=== PATIENT | female | born 1975 | race Caucasian/White ===

== ENCOUNTER 2016-12-07 14:14 | Emergency (ER) | payer BC, MEDICAID ==
[~2016-12-07] VITALS: Ht 160 cm; Wt 100.0 kg
[~2016-12-07 14:14] MED LIST: AMOXICILLIN; TYLENOL PRN
[2016-12-07] MEDS ORDERED: SOD CHLORIDE 0.9% 500 ML IV STA (14:20)
[2016-12-07 14:21] VITALS: Ht 160 cm; Wt 100.0 kg
[2016-12-07] MEDS ORDERED: LORAZEPAM 2 MG INJ IV ONE (14:30)
[2016-12-07 14:57] LABS: CALCIUM 7.5 mg/dl (8.4-10.2); CREATININE 0.57 mg/dl (0.44-1.00); MAGNESIUM 1.5 mg/dl (1.7-2.5); PHOSPHORUS 4.2 mg/dl (2.5-4.9); POTASSIUM 3.7 mmol/L (3.5-5.1)
[2016-12-07] MEDS ORDERED: LIOT50TA2 PO (15:07)
[2016-12-07] MEDS ORDERED: ERGO500037 PO (15:08)
[2016-12-07] MEDS ORDERED: AMLO5TAB4 PO (15:10)
[2016-12-07] MEDS ORDERED: OXYC-279 PO (15:10)
[2016-12-07 15:11] LABS: T3 UPTAKE 41.5 % (23.5-40.5)
[2016-12-07] MEDS ORDERED: METO25TA4 PO (15:11)
[2016-12-07] MEDS ORDERED: LEVO125T75 PO (15:11)
[2016-12-07] MEDS ORDERED: FER325 PO (15:12)
[2016-12-07] MEDS ORDERED: CEPH500C PO (15:12)
[2016-12-07] MEDS ORDERED: CALCIUM GLUCONATE 10% 1 GM in SOD CHLORIDE 0.9% 100 ML IVPB ONE (15:30)
[2016-12-07] MEDS ORDERED: MAGNESIUM SULFATE 1 GM/D5W 100 ML IVPB ONE (15:30)
--- NOTE | 2016-12-07 15:53 | ERD ---
ER Documentation Chief Complaint Date/Time DATE: 12/07/16 TIME: 15:48 Chief Complaint anxiety related to thyroid removal yesterday HPI 41-year-old female had thyroidectomy yesterday who presents to the emergency room with spasms of bilateral hands. She states that she was asymptomatic and sitting at rest when she had sudden spasms of bilateral hand. Patient now describes some anxiety. She denies any significant hyperventilation. No chest pain or shortness of breath, no pleuritic pain. No fever. The patient states that she did not take her calcium until just prior to arrival. ROS All systems reviewed and are negative except as per history of present illness. Medications Home Meds Reported Medications Ferrous Sulfate* (Ferrous Sulfate*) 325 Mg Tabec, 325 MG PO DAILY, TAB 12/07/16 Cephalexin* (Cephalexin*) 500 Mg Capsule, 500 MG PO TID, #21 CAP 12/07/16 Levothyroxine Sodium* (Levothyroxine Sodium*) 125 Mcg Tablet, 125 MCG PO BEFORE BREAKFAST, #30 TAB 12/07/16 Metoprolol Tartrate* (Lopressor*) 25 Mg Tablet, 25 MG PO BID, #60 TAB 12/07/16 Amlodipine Besylate* (Norvasc*) 5 Mg Tablet, 5 MG PO DAILY, TAB 12/07/16 Oxycodone HCl/Acetaminophen (Percocet 5-325 mg Tablet) 1 Each Tablet, 1 EACH PO NEEDED, TAB 12/07/16 Ergocalciferol (Vitamin D2) (VITAMIN D2) 50,000 Unit Capsule, 02150 UNIT PO Q7D , CAP 12/07/16 Liothyronine Sodium* (Cytomel*) 50 Mcg Tablet, 25 MCG PO DAILY, TAB 12/07/16 Discontinued Reported Medications [Amoxicillin] No Conflict Check 10/19/09 [Tylenol Prn] No Conflict Check 10/19/09 Allergies Allergies: Coded Allergies: No Known Allergy (Verified , 12/07/16) PMhx/Soc History of Surgery: Yes (CHOLECYSTECTOMY,HYSTERECTOMY,THYROIDECTOMY) Anesthesia Reaction: No Hx Neurological Disorder: No Hx Respiratory Disorders: No Hx Psychiatric Problems: Yes (ANXIETY) Hx Miscellaneous Medical Probl: Yes Hx Alcohol Use: No Hx Substance Use: No Hx Tobacco Use: No Smoking Status: Never smoker FmHx Family History: No diabetes Physical Exam Vitals Vital Signs Date Time Temp Pulse Resp B/P Pulse Ox O2 Delivery O2 Flow Rate FiO2 12/07/16 14:21 98.4 102 20 169/107 97 Physical Exam General: Anxious, carpal spasms Head: Normocephalic, atraumatic. Eyes: Pupils equally reactive, EOM intact ENT: Moist mucous membranes Neck: Supple, no lymphadenopathy Respiratory: Lungs clear bilaterally, no distress Cardiovascular: RRR, no murmurs, rubs, or gallops Abdominal: Soft, non-tender, non-distended, no peritoneal signs : Deferred MSK: No edema, no unilateral swelling, 5/5 strength Neurologic: Alert and oriented, moving all extremities, normal speech, no focal weakness, no cerebellar signs Skin: No rash Psych: Normal mood Result Diagram: 12/07/16 1427 Results 24 hrs Laboratory Tests Test 12/07/16 14:27 Sodium Level 138mmol/L Potassium Level 3.7mmol/L Chloride Level 101mmol/L Carbon Dioxide Level 25mmol/L Anion Gap 16 Blood Urea Nitrogen 13mg/dl Creatinine 0.57mg/dl Glucose Level 173mg/dl Calcium Level 7.5mg/dl Phosphorus Level 4.2mg/dl Magnesium Level 1.5mg/dl Free Thyroxine Index 6.27ug/ml Thyroxine (T4) 15.1ug/dl Triiodothyronine (T3) Uptake 41.5% Current Medications Medications (Trade) Dose Ordered Sig/Johnson Route PRN Reason Start Time Stop Time Status Last Admin Dose Admin Sodium Chloride (NS) 500 ml @ 500 mls/hr Q1H STAT IV 12/07/16 14:20 12/07/16 15:19 DC 12/07/16 14:31 Lorazepam 1 mg 1 mg ONCE ONCE IV 12/07/16 14:30 12/07/16 14:31 DC 12/07/16 14:31 Magnesium Sulfate/ Dextrose 100 ml @ 100 mls/hr ONCE ONCE IVPB 12/07/16 15:30 12/07/16 16:29 12/07/16 15:35 Calcium Gluconate/ Sodium Chloride (Ca Gluc/NS) 110 ml @ 110 mls/hr ONCE ONCE IVPB 12/07/16 15:30 12/07/16 16:29 Procedures/MDM EKG, MONITORS, & DIAGNOSTIC IMAGING: EKG: I reviewed and interpreted a 12-lead EKG. Rhythm: Normal sinus rhythm Ectopy: None Intervals: Prolonged AL interval ST segments: No elevations or depressions T waves: No contiguous inversions LAB INTERPRETATION: Hypomagnesemia, hypocalcemia, slightly elevated thyroid MEDICAL DECISION MAKING: The patient presents with carpal spasms. The patient's symptoms may be secondary to hypocalcemia versus anxiety reaction and carpal pedal spasms. However she does not describe hyperventilation prior to this episode. The patient has no evidence of thyroid storm, no significant tachycardia or fever agitation. ER COURSE: The patient was given IV fluids, Ativan for anxiolysis. The patient's magnesium and calcium is low. Repletion through IV has been performed. The patient's thyroid is also slightly elevated. I was able speak to Dr. Warren, the patient's ENT surgeon. He states that this is likely secondary to the recent surgery. The patient does not show evidence of thyrotoxicosis. He recommends repletion of electrolytes, the patient should be taking Tums 1000 mg 3 times daily. This has been given to the patient. She states understanding. The patient can be safely followed up in his office as an outpatient. The patient's symptoms have improved with IV fluids, anxiolysis, electrolyte replacement. Patient is safe for discharge. I kept the patient and/or family informed of laboratory and diagnostic imaging results throughout the emergency room course. DISPOSITION PLAN: We discussed follow up with the patient's primary care doctor within 24 to 48 hours as needed. We also discussed return to the emergency room for worsening symptoms or worsening condition. Outpatient referral: Dr. Warren, ENT Departure Diagnosis: Primary Impression: Muscle spasm Additional Impressions: Hypocalcemia Hypomagnesemia Condition: Stable GEETA LAUREN MD Dec 07, 2016 15:53
[2016-12-07 17:55] VITALS: BP 145/95; PULSE 88; RESP 18; TEMP 98.4
== END 2016-12-07 18:21 | disposition home or self-care (01) ==
LOC: E/R 14:14
DX: M62.838 Other muscle spasm (principal); E83.51 Hypocalcemia; E83.42 Hypomagnesemia; I10 Essential (primary) hypertension; R40.2142 Coma scale, eyes open, spontaneous, at arrival to emergency department; R40.2362 Coma scale, best motor response, obeys commands, at arrival to emergency department; R40.2252 Coma scale, best verbal response, oriented, at arrival to emergency department
CPT/HCPCS: 80048; 83735; 84100; 84436; 84479; 93005; J0610; J2060; J3475; J7040; Z7610; 36415; 96374; 96375

== ENCOUNTER 2017-02-11 18:37 | Emergency (ER) | payer BC ==
[~2017-02-11] VITALS: Ht 162.6 cm; Wt 108.0 kg
[~2017-02-11 18:37] MED LIST changes: +AMLO5TAB4 PO; -AMOXICILLIN; +CEPH500C PO; +ERGO500037 PO; +FER325 PO; +LEVO125T75 PO; +LIOT50TA2 PO; +METO25TA4 PO; +OXYC-279 PO; -TYLENOL PRN
[2017-02-11 18:41] VITALS: Ht 162.6 cm; Wt 108.0 kg
[2017-02-11] MEDS ORDERED: morphine 2 MG INJ IV STA (19:09)
[2017-02-11] MEDS ORDERED: ONDANSETRON 4 MG INJ IV STA (19:09)
[2017-02-11] MEDS ORDERED: SOD CHLORIDE 0.9% 1,000 ML IV STA (19:09)
--- NOTE | 2017-02-11 19:22 | ERD ---
ER Documentation Chief Complaint Date/Time DATE: 02/11/17 TIME: 19:20 Chief Complaint abd pain/vomiting/diarrhea after eating sushi yesterday HPI 41-year-old female with history of thyroid disease, comes emergency room with epigastric abdominal pain with vomiting and diarrhea that started at around 2 AM this morning. She describes a sharp, intermittent pain in epigastric region , nonradiating. She has had nonbloody nonbilious emesis and several episodes of loose stools. She states that she ate sushi for dinner last night, other family members that he with her however she states that they are feeling fine today. She started having painful urination that is burning like this afternoon. ROS All systems reviewed and are negative except as per history of present illness. Medications Home Meds Active Scripts Ondansetron (Ondansetron Odt) 4 Mg Tab.rapdis, 4 MG PO Q6H Y for NAUSEA AND/OR VOMITING, #12 TAB Prov:TIKI PIRES PA-C 02/11/17 Dicyclomine Hcl* (Bentyl*) 10 Mg Capsule, 10 MG PO QID, #12 CAP Prov:TIKI PIRES PA-C 02/11/17 Azithromycin* (Zithromax*) 500 Mg Tablet, 500 MG PO DAILY for 3 Days, TAB Prov:TIKI PIRES PA-C 02/11/17 Reported Medications Ferrous Sulfate* (Ferrous Sulfate*) 325 Mg Tabec, 325 MG PO DAILY, TAB 12/07/16 Cephalexin* (Cephalexin*) 500 Mg Capsule, 500 MG PO TID, #21 CAP 12/07/16 Levothyroxine Sodium* (Levothyroxine Sodium*) 125 Mcg Tablet, 125 MCG PO BEFORE BREAKFAST, #30 TAB 12/07/16 Metoprolol Tartrate* (Lopressor*) 25 Mg Tablet, 25 MG PO BID, #60 TAB 12/07/16 Amlodipine Besylate* (Norvasc*) 5 Mg Tablet, 5 MG PO DAILY, TAB 12/07/16 Oxycodone HCl/Acetaminophen (Percocet 5-325 mg Tablet) 1 Each Tablet, 1 EACH PO NEEDED, TAB 12/07/16 Ergocalciferol (Vitamin D2) (VITAMIN D2) 50,000 Unit Capsule, 27174 UNIT PO Q7D , CAP 12/07/16 Liothyronine Sodium* (Cytomel*) 50 Mcg Tablet, 25 MCG PO DAILY, TAB 12/07/16 Allergies Allergies: Coded Allergies: No Known Allergy (Verified , 02/11/17) PMhx/Soc History of Surgery: Yes (CHOLECYSTECTOMY,HYSTERECTOMY,THYROIDECTOMY) Anesthesia Reaction: No Hx Neurological Disorder: No Hx Respiratory Disorders: No Hx Psychiatric Problems: Yes (ANXIETY) Hx Miscellaneous Medical Probl: Yes Hx Alcohol Use: No Hx Substance Use: No Hx Tobacco Use: No Smoking Status: Never smoker Physical Exam Vitals Vital Signs Date Time Temp Pulse Resp B/P Pulse Ox O2 Delivery O2 Flow Rate FiO2 02/11/17 18:41 98.2 101 20 152/86 97 Physical Exam General: Well-developed, well-nourished. The patient appears in no acute distress. HEENT: Head is normocephalic, atraumatic. No scleral icterus. Neck: Supple. Nontender. Lungs: Clear to auscultation. Normal air movement. Heart: Regular rate and rhythm. S1 and S2 are normal. No murmurs, gallops, or rubs. Abdomen: Soft, epigastric region is tender,, nondistended. Bowel sounds are normoactive. Negative Carrizales sign, no McBurney's tenderness. Extremities: No clubbing or cyanosis. Normal pulses. Moving extremities x 4. No weakness. Neurologic: Alert and oriented 3. No focal deficits. Skin: Normal turgor. No rash or lesions. Result Diagram: 02/11/17191902/11/171919 Results 24 hrs Laboratory Tests Test 02/11/17 19:14 02/11/17 19:20 Urine Color LT. YELLOW Urine Clarity CLEAR Urine pH 6.0 Urine Specific Lenore 1.010 Urine Ketones NEGATIVE Urine Nitrite NEGATIVE Urine Bilirubin NEGATIVE Urine Urobilinogen 0.2 E.U./dL Urine Leukocyte Esterase NEGATIVE Urine Microscopic RBC 0-2/HPF Urine Microscopic WBC NONE SEEN/HPF Urine Epithelial Cells FEW Urine Bacteria RARE Urine Hemoglobin 1+ Urine Glucose NEGATIVE% Urine Total Protein NEGATIVE White Blood Count 13.710^3/ul Red Blood Count 5.0010^6/ul Hemoglobin 15.5g/dl Hematocrit 45.0% Mean Corpuscular Volume 90.0fl Mean Corpuscular Hemoglobin 31.0pg Mean Corpuscular Hemoglobin Concent 34.4g/dl Red Cell Distribution Width 13.4% Platelet Count 89903^3/UL Mean Platelet Volume 10.2fl Neutrophils % 84.1% Lymphocytes % 9.8% Monocytes % 4.7% Eosinophils % 0.7% Basophils % 0.3% Nucleated Red Blood Cells % 0.0/100WBC Neutrophils # 11.510^3/ul Lymphocytes # 1.310^3/ul Monocytes # 0.610^3/ul Eosinophils # 0.110^3/ul Basophils # 0.010^3/ul Nucleated Red Blood Cells # 0.010^3/ul Sodium Level 138mmol/L Potassium Level 3.6mmol/L Chloride Level 100mmol/L Carbon Dioxide Level 24mmol/L Anion Gap 18 Blood Urea Nitrogen 12mg/dl Creatinine 0.72mg/dl Glucose Level 132mg/dl Calcium Level 9.1mg/dl Total Bilirubin 1.7mg/dl Direct Bilirubin 0.00mg/dl Indirect Bilirubin 1.7mg/dl Aspartate Amino Transf (AST/SGOT) 38IU/L Alanine Aminotransferase (ALT/SGPT) 74IU/L Alkaline Phosphatase 72IU/L Total Protein 7.6g/dl Albumin 5.1g/dl Globulin 2.50g/dl Albumin/Globulin Ratio 2.04 Lipase 34U/L Current Medications Medications (Trade) Dose Ordered Sig/Johnson Route PRN Reason Start Time Stop Time Status Last Admin Dose Admin Sodium Chloride (NS) 1,000 ml @ 1,000 mls/hr Q1H STAT IV 02/11/17 19:09 02/11/17 20:08 DC 02/11/17 19:27 Morphine Sulfate (morphine) 2 mg ONCE STAT IV 02/11/17 19:09 02/11/17 19:12 DC Ondansetron HCl (Zofran Inj) 4 mg ONCE STAT IV 02/11/17 19:09 02/11/17 19:12 DC 02/11/17 19:27 Patient: MARITA FARRIS : 1975 Age: 41 Sex: F MR #: [id number] DOS: 02/11/172022 Ordering MD: TIKI PIRES PA-C Location: [facility] Room/Bed: PROCEDURE: US Abdomen (right upper quadrant). CLINICAL INDICATION: Right upper quadrant abdomen pain. TECHNIQUE: Multiple real-time longitudinal and transverse images of the right upper quadrant of the abdomen were acquired utilizing a curved array transducer. Images were reviewed on a high-resolution PACS workstation. COMPARISON: None FINDINGS: Images are suboptimal due to patient body habitus. The liver is enlarged and diffusely increased in echogenicity. There is no focal hepatic lesion. The gallbladder is surgically absent. The bile ducts are normal with the common bile duct measuring 6.4 mm in diameter. The visualized portions of the pancreas are unremarkable with obscuration of the tail of the pancreas. No free fluid is present. The right kidney measures 11.1 cm. There is normal echogenicity of the right kidney. There is no perinephric fluid collection. No hydronephrosis, mass, or calculus is seen. IMPRESSION: 1. Suboptimal study due to patient body habitus. 2. Hepatomegaly. 3. Fatty metamorphosis of the liver. 4. Status post cholecystectomy. 5. Otherwise unremarkable study. RPTAT: QQ .David Rangel MD, MD Date Time Electronically viewed and signed by .David Rangel MD, MD on 02/11/2017 20:43 .R/ CC: TIKI PIRES PA-C Procedures/[facility] ED course: Patient had an IV line established, blood and urine were obtained. She was given morphine 4 mg, Zofran 4 mg IV and a fluid bolus of normal saline. The patient's abdominal pain was reexamined. Patient was sitting comfortably with improved pain. Patient was not in any distress. Medical decision makin-year-old female comes in vomiting and diarrhea for the past day, possibly from early viral syndrome versus food poisoning. Patient states that her symptoms began after eating sushi yesterday. She had a workup done here, given that she had abdominal pain. Like leukocytosis noted, mild at 13.7 likely from vomiting. She does have elevated bilirubin however this is likely because she is status post cholecystectomy, and abdominal ultrasound was done without any signs of obstruction. I doubt choledocholithiasis or acute cholangitis. Urine was also reviewed and negative for infection. She was given fluids as well as morphine and Zofran at this time she states she is feeling much better, does not have any urge to vomit. She will be advised to do slow advance to regular diet, clear liquids over the next 24 hours. Patient will be treated for possible food poisoning given her history of eating at a restaurant in subsequently developing vomiting and diarrhea. No signs of pancreatitis, appendicitis, bowel obstruction, acute hepatobiliary process. Departure Diagnosis: Primary Impression: Nausea vomiting and diarrhea Condition: Good TIKI PIRES PA-C Feb 11, 2017 19:22
[2017-02-11 19:47] LABS: ADD SCAN DIFF NO
[2017-02-11 19:49] LABS: BASOPHILS % 0.3 % (0.0-2.0); EOSINOPHILS # 0.1 10^3/ul (0.0-0.5); EOSINOPHILS % 0.7 % (0.0-7.0); HEMOGLOBIN 15.5 g/dl (12.0-16.0); LYMPHOCYTES # 1.3 10^3/ul (0.8-2.9); LYMPHOCYTES % 9.8 % (15.0-51.0); MEAN CORPUSCULAR HGB CONC 34.4 g/dl (32.0-37.0); MEAN PLATELET VOLUME 10.2 fl (7.4-10.4); MONOCYTE # 0.6 10^3/ul (0.3-0.9); MONOCYTES % 4.7 % (0.0-11.0); NEUTROPHIL # 11.5 10^3/ul (1.6-7.5); NEUTROPHILS % 84.1 % (39.0-77.0); PLATELET COUNT 281 10^3/UL (140-415); RED CELL DISTRIBUTION WIDTH 13.4 % (11.5-14.5); WHITE BLOOD COUNT 13.7 10^3/ul (4.8-10.8)
[2017-02-11 19:51] LABS: ADD UMIC YES; UR BILIRUBIN (Dip) NEGATIVE (NEGATIVE); UR BLOOD (Dip) 1+ (NEGATIVE); UR CLARITY CLEAR (CLEAR); UR COLOR LT. YELLOW (YELLOW); UR GLUCOSE (Dip) NEGATIVE (NEGATIVE); UR KETONES (Dip) NEGATIVE (NEGATIVE); UR LEUKOCYTE ESTERASE (Dip) NEGATIVE (NEGATIVE); UR NITRITE (Dip) NEGATIVE (NEGATIVE); UR TOTAL PROTEIN (Dip) NEGATIVE (NEGATIVE); UR UROBILINOGEN (Dip) 0.2 E.U./dL (0.1-1.0)
[2017-02-11 19:58] LABS: UR BACTERIA RARE; URINE RBCS 0-2 /HPF (0)
[2017-02-11 20:15] LABS: ALBUMIN 5.1 g/dl (3.3-4.9); ALBUMIN/GLOBULIN RATIO 2.04; BILIRUBIN,INDIRECT 1.7 mg/dl (0-1.1); BILIRUBIN,TOTAL 1.7 mg/dl (0.2-1.3); CALCIUM 9.1 mg/dl (8.4-10.2); CREATININE 0.72 mg/dl (0.44-1.00); POTASSIUM 3.6 mmol/L (3.5-5.1); TOTAL PROTEIN 7.6 g/dl (6.1-8.1)
--- NOTE | 2017-02-11 20:43 | RADRPT ---
PROCEDURE: US Abdomen (right upper quadrant). CLINICAL INDICATION: Right upper quadrant abdomen pain. TECHNIQUE: Multiple real-time longitudinal and transverse images of the right upper quadrant of th e abdomen were acquired utilizing a curved array transducer. Images were reviewed on a high-resoluti on PACS workstation. COMPARISON: None FINDINGS: Images are suboptimal due to patient body habitus. The liver is enlarged and diffusely increased in echogenicity. There is no focal hepatic lesion. The gallbladder is surgically absent. The bile ducts are normal with the common bile duct measuring 6.4 mm in diameter. The visualized portions of the pancreas are unremarkable with obscuration of the tail of the pancrea s. No free fluid is present. The right kidney measures 11.1 cm. There is normal echogenicity of the right kidney. There is no perinephric fluid collection. No hydronephrosis, mass, or calculus is seen. IMPRESSION: 1. Suboptimal study due to patient body habitus. 2. Hepatomegaly. 3. Fatty metamorphosis of the liver. 4. Status post cholecystectomy. 5. Otherwise unremarkable study. RPTAT: QQ .David Rangel MD, Date Time Electronically viewed and signed by .David Rangel MD, on 02/11/2017 20:43 .R/
[2017-02-11] MEDS ORDERED: DICY10CA60 PO (20:50)
[2017-02-11] MEDS ORDERED: ONDA4TAB14 PO (20:50)
[2017-02-11] MEDS ORDERED: AZIT500T3 PO (20:50)
[2017-02-11 20:55] VITALS: BP 134/72; PULSE 72; RESP 18
== END 2017-02-11 20:55 | disposition home or self-care (01) ==
LOC: FTE 18:37
DX: R11.2 Nausea with vomiting, unspecified (principal); R19.7 Diarrhea, unspecified
CPT/HCPCS: 36415; 76705; 80053; 81001; 83690; 85025; 96374; J2405; J7030; Z7502; J2270

== ENCOUNTER 2017-03-05 10:22 | Emergency (ER) | payer BC ==
[~2017-03-05] VITALS: Ht 165.1 cm; Wt 86.0 kg
[~2017-03-05 10:22] MED LIST changes: +AZIT500T3 PO; +DICY10CA60 PO; +ONDA4TAB14 PO
[2017-03-05 10:24] VITALS: Ht 165.1 cm; Wt 86.0 kg
[2017-03-05] MEDS ORDERED: SOD CHLORIDE 0.9% 1,000 ML IV STA (10:42)
[2017-03-05 11:03] LABS: ADD SCAN DIFF NO
--- NOTE | 2017-03-05 11:04 | RADRPT ---
PROCEDURE: XR Chest. CLINICAL INDICATION: chest pain TECHNIQUE: Single frontal view of the chest was obtained COMPARISON: 11/27/2013 FINDINGS: The heart and mediastinum are within normal limits. The lungs are clear. There is no pleural effusion or pneumothorax. RPTAT: AA IMPRESSION: No acute disease. .Sulaiman Franks MD, MD Date Time Electronically viewed and signed by .Sulaiman Franks MD, MD on 03/05/2017 11:03 .S/
[2017-03-05 11:12] LABS: BASOPHIL # 0.1 10^3/ul (0.0-0.1); BASOPHILS % 0.5 % (0.0-2.0); EOSINOPHILS # 0.1 10^3/ul (0.0-0.5); EOSINOPHILS % 0.6 % (0.0-7.0); HEMOGLOBIN 15.2 g/dl (12.0-16.0); LYMPHOCYTES # 2.2 10^3/ul (0.8-2.9); LYMPHOCYTES % 17.3 % (15.0-51.0); MEAN CORPUSCULAR HEMOGLOBIN 31.1 pg (29.0-33.0); MEAN CORPUSCULAR HGB CONC 35.3 g/dl (32.0-37.0); MEAN CORPUSCULAR VOLUME 88.1 fl (82.0-101.0); MEAN PLATELET VOLUME 9.9 fl (7.4-10.4); MONOCYTE # 0.5 10^3/ul (0.3-0.9); MONOCYTES % 4.3 % (0.0-11.0); NEUTROPHIL # 9.6 10^3/ul (1.6-7.5); NEUTROPHILS % 76.9 % (39.0-77.0); PLATELET COUNT 327 10^3/UL (140-415); RED BLOOD COUNT 4.88 10^6/ul (4.20-5.40); RED CELL DISTRIBUTION WIDTH 12.7 % (11.5-14.5); WHITE BLOOD COUNT 12.5 10^3/ul (4.8-10.8)
[2017-03-05] MEDS ORDERED: METOCLOPRAMIDE 10 MG INJ IV ONE (11:30)
[2017-03-05 11:34] LABS: ANION GAP 19 (8-16); BLOOD UREA NITROGEN 13 mg/dl (7-20); CALCIUM 9.6 mg/dl (8.4-10.2); CARBON DIOXIDE 20 mmol/L (21-31); CHLORIDE 101 mmol/L (97-110); GLUCOSE 131 mg/dl (70-220); POTASSIUM 3.4 mmol/L (3.5-5.1); SODIUM 137 mmol/L (135-144)
[2017-03-05 11:49] LABS: TROPONIN-I < 0.012 ng/ml (0.00-0.12)
[2017-03-05] MEDS ORDERED: SOD CHLORIDE 0.9% 1,000 ML IV ONE (13:14)
[2017-03-05] MEDS ORDERED: METO10TA92 PO (13:28)
[2017-03-05] MEDS ORDERED: FAMO-96 PO (13:28)
[2017-03-05] MEDS ORDERED: FAMOTIDINE 20 MG TAB PO ONE (13:30)
--- NOTE | 2017-03-05 14:20 | ERD ---
ER Documentation Chief Complaint Date/Time DATE: 03/05/17 TIME: 14:13 Chief Complaint PT fainted loss consciousness, seen in [place] yesterday for same. HPI 41-year-old female presenting with 4 days of nausea and dizziness. She initially had vomiting and diarrhea which resolved. She denies any associated hematemesis or hematochezia. She was seen at an outside hospital for the same complaints yesterday. She had labs and a CT scan of her abdomen done and there were no acute abnormalities per the patient. She was sent home with a prescription for Zofran. This morning she had a syncopal event while walking to the refrigerator. She felt very dizzy and clammy. She denies any associated chest pain, shortness of breath, fever, chills. She has continued nausea with epigastric discomfort. She spoke with her primary care doctor, Noah Pang, who advised evaluation in the ED ROS All systems reviewed and are negative except as per history of present illness. Medications Home Meds Active Scripts Metoclopramide* (Reglan*) 10 Mg Tablet, 10 MG PO Q6 Y for NAUSEA AND/OR VOMITING , #10 TAB Prov:MONROE ARREDONDO MD 03/05/17 Famotidine* (Pepcid*) 20 Mg Tablet, 20 MG PO BID for 4 Days, TAB Prov:MONROE ARREDONDO MD 03/05/17 Reported Medications Ferrous Sulfate* (Ferrous Sulfate*) 325 Mg Tabec, 325 MG PO DAILY, TAB 12/07/16 Cephalexin* (Cephalexin*) 500 Mg Capsule, 500 MG PO TID, #21 CAP 12/07/16 Levothyroxine Sodium* (Levothyroxine Sodium*) 125 Mcg Tablet, 125 MCG PO BEFORE BREAKFAST, #30 TAB 12/07/16 Metoprolol Tartrate* (Lopressor*) 25 Mg Tablet, 25 MG PO BID, #60 TAB 12/07/16 Amlodipine Besylate* (Norvasc*) 5 Mg Tablet, 5 MG PO DAILY, TAB 12/07/16 Oxycodone HCl/Acetaminophen (Percocet 5-325 mg Tablet) 1 Each Tablet, 1 EACH PO NEEDED, TAB 12/07/16 Ergocalciferol (Vitamin D2) (VITAMIN D2) 50,000 Unit Capsule, 04247 UNIT PO Q7D , CAP 12/07/16 Liothyronine Sodium* (Cytomel*) 50 Mcg Tablet, 25 MCG PO DAILY, TAB 12/07/16 Discontinued Scripts Ondansetron (Ondansetron Odt) 4 Mg Tab.rapdis, 4 MG PO Q6H Y for NAUSEA AND/OR VOMITING, #12 TAB Prov:TIKI PIRES PA-C 02/11/17 Dicyclomine Hcl* (Bentyl*) 10 Mg Capsule, 10 MG PO QID, #12 CAP Prov:TIKI PIRES PA-C 02/11/17 Azithromycin* (Zithromax*) 500 Mg Tablet, 500 MG PO DAILY for 3 Days, TAB Prov:TIKI PIRES PA-C 02/11/17 Allergies Allergies: Coded Allergies: No Known Allergy (Verified , 03/05/17) PMhx/Soc History of Surgery: Yes (CHOLECYSTECTOMY,HYSTERECTOMY,THYROIDECTOMY) Anesthesia Reaction: No Hx Neurological Disorder: No Hx Respiratory Disorders: No Hx Psychiatric Problems: Yes (ANXIETY) Hx Miscellaneous Medical Probl: Yes Hx Alcohol Use: No Hx Substance Use: No Hx Tobacco Use: No Smoking Status: Never smoker FmHx Family History: No coronary disease Physical Exam Vitals Vital Signs Date Time Temp Pulse Resp B/P Pulse Ox O2 Delivery O2 Flow Rate FiO2 03/05/17 12:48 99.0 74 18 154/88 97 03/05/17 10:24 99.2 90 18 160/101 97 Physical Exam Const: Nontoxic, in mild distress Head: Atraumatic Eyes: Normal Conjunctiva, PERRLA, EOMI ENT: Tacky dry mucous membrane Neck: Full range of motion..~ No meningismus. Resp: Clear to auscultation bilaterally Cardio: Regular rate and rhythm, no murmurs Abd: Soft, non tender, non distended. Normal bowel sounds Skin: No petechiae or rashes Back: No midline or flank tenderness Ext: No cyanosis, or edema Neur: Awake and alert and oriented 3, cranial nerves intact, strength and sensations intact in all 4 extremities, normal gait Psych: Anxious mood and Affect Result Diagram: 03/05/17 1010 03/05/17 1010 Results 24 hrs Laboratory Tests Test 03/05/17 10:10 White Blood Count 12.510^3/ul Red Blood Count 4.8810^6/ul Hemoglobin 15.2g/dl Hematocrit 43.0% Mean Corpuscular Volume 88.1fl Mean Corpuscular Hemoglobin 31.1pg Mean Corpuscular Hemoglobin Concent 35.3g/dl Red Cell Distribution Width 12.7% Platelet Count 98727^3/UL Mean Platelet Volume 9.9fl Neutrophils % 76.9% Lymphocytes % 17.3% Monocytes % 4.3% Eosinophils % 0.6% Basophils % 0.5% Nucleated Red Blood Cells % 0.0/100WBC Neutrophils # 9.610^3/ul Lymphocytes # 2.210^3/ul Monocytes # 0.510^3/ul Eosinophils # 0.110^3/ul Basophils # 0.110^3/ul Nucleated Red Blood Cells # 0.010^3/ul Sodium Level 137mmol/L Potassium Level 3.4mmol/L Chloride Level 101mmol/L Carbon Dioxide Level 20mmol/L Anion Gap 19 Blood Urea Nitrogen 13mg/dl Creatinine 0.80mg/dl Glucose Level 131mg/dl Calcium Level 9.6mg/dl Troponin I < 0.012ng/ml Serum HCG, Qualitative NEGATIVE Current Medications Medications (Trade) Dose Ordered Sig/Johnson Route PRN Reason Start Time Stop Time Status Last Admin Dose Admin Sodium Chloride (NS) 1,000 ml @ 1,000 mls/hr Q1H STAT IV 03/05/17 10:42 03/05/17 11:41 DC 03/05/17 10:55 Metoclopramide HCl 10 mg 10 mg ONCE ONCE IV 03/05/17 11:30 03/05/17 11:31 DC 03/05/17 11:23 Sodium Chloride (NS) 1,000 ml @ 1,000 mls/hr Q1H ONCE IV 03/05/17 13:14 03/05/17 14:13 DC 03/05/17 13:19 Famotidine (Pepcid) 20 mg ONCE ONCE PO 03/05/17 13:30 03/05/17 13:31 DC 03/05/17 13:31 Procedures/MDM EKG: Rate/Rhythm: Normal Sinus Rhythm QRS, ST, T-waves: No changes consistent w/ acute ischemia Impression: No evidence of ischemia or arrhythmia Labs CBC: Mild leukocytosis CMP: Mild hypokalemia, no evidence of significant electrolyte abnormality, renal failure, hypoglycemia, liver failure, or biliary obstruction Troponin within normal limits negative Chest x-ray shows no acute abnormalities MDM The patients vitals are within normal limits and labs are unremarkable. Exam is consistent with dehydration. The ECG did not show any concerning abnormalities. I have a low suspicion for an arrhythmia, acute coronary syndrome , PE or a CVA or intracranial hemorrhage. Etiology for syncope is likely benign and related to dehydration. Patient's syncopal symptoms have stabilized while in the department and are suitable for outpatient follow up. I do not think she needs repeat imaging today as her abdominal exam is benign. I have a low suspicion for acute surgical abdomen. I spoke with her primary care doctor, who advised to follow-up in the office within the next week. Patient is already on pantoprazole for gastritis. I will add Pepcid and Reglan to her regimen for her continued epigastric discomfort and nausea. I have recommended p.o. hydration with electrolyte solution. I advised follow up with primary care physician in 1-2 days. Return precautions were discussed at bedside. Departure Diagnosis: Primary Impression: Vasovagal syncope Additional Impressions: Gastritis Gastritis type: unspecified gastritis Chronicity: acute Gastritis bleeding : without bleeding Qualified Code: K29.00 - Acute gastritis without hemorrhage, unspecified gastritis type Nausea Condition: Stable Patient Instructions: Causes of Syncope, Nausea Additional Instructions: Call your primary care doctor's office tomorrow to make an appointment. Drink plenty of fluids. Return to the ER for worsening symptoms. MONROE ARREDONDO MD Mar 05, 2017 14:20
[2017-03-05 14:59] VITALS: BP 121/80; PULSE 86; RESP 19; TEMP 98
== END 2017-03-05 15:00 | disposition home or self-care (01) ==
LOC: E/R 10:22
DX: R55 Syncope and collapse (principal); K29.00 Acute gastritis without bleeding; R11.0 Nausea
CPT/HCPCS: 36415; 71010; 80048; 84484; 84703; 85025; 93005; 96374; J2765; J7030; Z7502; Z7610

== ENCOUNTER 2017-05-20 16:35 | Emergency (ER) | payer BC ==
[~2017-05-20] VITALS: Ht 160 cm; Wt 88.0 kg
[~2017-05-20 16:35] MED LIST changes: -AZIT500T3 PO; -DICY10CA60 PO; +FAMO-96 PO; +METO10TA92 PO; -ONDA4TAB14 PO
[2017-05-20 16:36] VITALS: Ht 160 cm; Wt 88.0 kg
[2017-05-20] MEDS ORDERED: ONDANSETRON 4 MG INJ IV STA (17:26)
[2017-05-20] MEDS ORDERED: SOD CHLORIDE 0.9% 1,000 ML IV ONE (17:30)
[2017-05-20 17:43] LABS: BASOPHIL # 0.1 10^3/ul (0.0-0.1); BASOPHILS % 0.5 % (0.0-2.0); EOSINOPHILS # 0.2 10^3/ul (0.0-0.5); EOSINOPHILS % 1.5 % (0.0-7.0); HEMATOCRIT 40.8 % (37.0-47.0); HEMOGLOBIN 14.7 g/dl (12.0-16.0); LYMPHOCYTES # 2.2 10^3/ul (0.8-2.9); MEAN CORPUSCULAR HEMOGLOBIN 31.3 pg (29.0-33.0); MEAN PLATELET VOLUME 10.3 fl (7.4-10.4); MONOCYTE # 0.7 10^3/ul (0.3-0.9); MONOCYTES % 5.9 % (0.0-11.0); NEUTROPHIL # 7.9 10^3/ul (1.6-7.5); NEUTROPHILS % 71.7 % (39.0-77.0); PLATELET COUNT 281 10^3/UL (140-415); RED BLOOD COUNT 4.69 10^6/ul (4.20-5.40)
[2017-05-20 17:45] LABS: ADD UMIC NO; UR ASCORBIC ACID NEGATIVE (NEGATIVE); UR BILIRUBIN (Dip) NEGATIVE (NEGATIVE); UR BLOOD (Dip) NEGATIVE (NEGATIVE); UR CLARITY CLEAR (CLEAR); UR COLOR YELLOW (YELLOW); UR GLUCOSE (Dip) NEGATIVE (NEGATIVE); UR KETONES (Dip) 1+ mg/dL (NEGATIVE); UR LEUKOCYTE ESTERASE (Dip) NEGATIVE Leu/ul (NEGATIVE); UR NITRITE (Dip) NEGATIVE (NEGATIVE); UR SPECIFIC GRAVITY (Dip) 1.013 (1.003-1.030); UR TOTAL PROTEIN (Dip) NEGATIVE (NEGATIVE); UR UROBILINOGEN (Dip) NEGATIVE (NEGATIVE)
[2017-05-20 18:02] LABS: ALBUMIN 4.5 g/dl (3.3-4.9); ALBUMIN/GLOBULIN RATIO 1.5; BILIRUBIN,INDIRECT 1.6 mg/dl (0-1.1); BILIRUBIN,TOTAL 1.6 mg/dl (0.2-1.3); CALCIUM 9.7 mg/dl (8.4-10.2); CREATININE 0.68 mg/dl (0.44-1.00); POTASSIUM 3.3 mmol/L (3.5-5.1); TOTAL PROTEIN 7.5 g/dl (6.1-8.1)
--- NOTE | 2017-05-20 18:10 | ERD ---
ER Documentation Chief Complaint Date/Time DATE: 05/20/17 TIME: 18:07 Chief Complaint on and off nausea and vomitting x 3 months HPI This is a 41-year-old female who presents the emergency department today complaining of nausea and intermittent vomiting for the past 3 months. Patient states that she has been seen at [facility] for the same symptoms. States that she has a GI doctor and they did a scope on her but she is unsure of the results. States that she saw her GI doctor on Sunday and he gave her a prescription for erythromycin but when she took it 2 days later she stated that she had muscle cramping her leg so she stopped taking it. States that the same thing happens when she takes Reglan. States she has taken Carafate and Protonix in the past and "nothing is helping her". She is waiting for her referral for a colonoscopy. States that she wants to stay here in the hospital. States that she did have a period of time where she felt okay and was able to eat. States that the smell of food makes her nauseated. Denies any fevers or chills, abdominal pain ,vomiting today. Denies any hematochezia or hematemesis. ROS All systems reviewed and are negative except as per history of present illness. Medications Home Meds Active Scripts Ondansetron Hcl* (Zofran*) 4 Mg Tablet, 4 MG PO Q6H for NAUSEA AND/OR VOMITING, #30 TAB Prov:CHONG TAPIA PA-C 05/20/17 Metoclopramide* (Reglan*) 10 Mg Tablet, 10 MG PO Q6 Y for NAUSEA AND/OR VOMITING , #10 TAB Prov:MONROE ARREDONDO MD 03/05/17 Famotidine* (Pepcid*) 20 Mg Tablet, 20 MG PO BID for 4 Days, TAB Prov:MONROE ARREDONDO MD 03/05/17 Reported Medications Ferrous Sulfate* (Ferrous Sulfate*) 325 Mg Tabec, 325 MG PO DAILY, TAB 12/07/16 Cephalexin* (Cephalexin*) 500 Mg Capsule, 500 MG PO TID, #21 CAP 12/07/16 Levothyroxine Sodium* (Levothyroxine Sodium*) 125 Mcg Tablet, 125 MCG PO BEFORE BREAKFAST, #30 TAB 12/07/16 Metoprolol Tartrate* (Lopressor*) 25 Mg Tablet, 25 MG PO BID, #60 TAB 12/07/16 Amlodipine Besylate* (Norvasc*) 5 Mg Tablet, 5 MG PO DAILY, TAB 12/07/16 Oxycodone HCl/Acetaminophen (Percocet 5-325 mg Tablet) 1 Each Tablet, 1 EACH PO NEEDED, TAB 12/07/16 Ergocalciferol (Vitamin D2) (VITAMIN D2) 50,000 Unit Capsule, 59700 UNIT PO Q7D , CAP 12/07/16 Liothyronine Sodium* (Cytomel*) 50 Mcg Tablet, 25 MCG PO DAILY, TAB 12/07/16 Allergies Allergies: Coded Allergies: No Known Allergy (Verified , 03/05/17) PMhx/Soc History of Surgery: Yes (CHOLECYSTECTOMY,HYSTERECTOMY,THYROIDECTOMY) Anesthesia Reaction: No Hx Neurological Disorder: No Hx Respiratory Disorders: No Hx Cardiac Disorders: Yes (HTN ) Hx Psychiatric Problems: Yes (ANXIETY) Hx Miscellaneous Medical Probl: Yes Hx Alcohol Use: No Hx Substance Use: No Hx Tobacco Use: No Physical Exam Vitals Vital Signs Date Time Temp Pulse Resp B/P Pulse Ox O2 Delivery O2 Flow Rate FiO2 05/20/17 16:36 97.6 72 18 144/67 98 Physical Exam Const: NAD Head: Atraumatic Eyes: Normal Conjunctiva ENT: Normal External Ears, Nose and Mouth.Throat, no erythema no exudate. Neck: Full range of motion..~ No meningismus. Resp: Clear to auscultation bilaterally Cardio: Regular rate and rhythm, no murmurs Abd: Soft, non tender, non distended. Normal bowel sounds Skin: No petechiae or rashes Back: No midline or flank tenderness Ext: No cyanosis, or edema Neur: Awake and alert Psych: Normal Mood and Affect Result Diagram: 05/20/17 1735 05/20/17 1735 Results 24 hrs Laboratory Tests Test 05/20/17 17:35 White Blood Count 11.010^3/ul Red Blood Count 4.6910^6/ul Hemoglobin 14.7g/dl Hematocrit 40.8% Mean Corpuscular Volume 87.0fl Mean Corpuscular Hemoglobin 31.3pg Mean Corpuscular Hemoglobin Concent 36.0g/dl Red Cell Distribution Width 12.0% Platelet Count 46814^3/UL Mean Platelet Volume 10.3fl Neutrophils % 71.7% Lymphocytes % 20.0% Monocytes % 5.9% Eosinophils % 1.5% Basophils % 0.5% Nucleated Red Blood Cells % 0.0/100WBC Neutrophils # 7.910^3/ul Lymphocytes # 2.210^3/ul Monocytes # 0.710^3/ul Eosinophils # 0.210^3/ul Basophils # 0.110^3/ul Nucleated Red Blood Cells # 0.010^3/ul Urine Color YELLOW Urine Clarity CLEAR Urine pH 7.0 Urine Specific [place] 1.013 Urine Ketones 1+mg/dL Urine Nitrite NEGATIVEmg/dL Urine Bilirubin NEGATIVEmg/dL Urine Urobilinogen NEGATIVEmg/dL Urine Leukocyte Esterase NEGATIVELeu/ul Urine Hemoglobin NEGATIVEmg/dL Urine Glucose NEGATIVEmg/dL Urine Total Protein NEGATIVEmg/dl Sodium Level 144mmol/L Potassium Level 3.3mmol/L Chloride Level 109mmol/L Carbon Dioxide Level 22mmol/L Anion Gap 16 Blood Urea Nitrogen 7mg/dl Creatinine 0.68mg/dl Glucose Level 94mg/dl Calcium Level 9.7mg/dl Total Bilirubin 1.6mg/dl Direct Bilirubin 0.00mg/dl Indirect Bilirubin 1.6mg/dl Aspartate Amino Transf (AST/SGOT) 27IU/L Alanine Aminotransferase (ALT/SGPT) 69IU/L Alkaline Phosphatase 78IU/L Total Protein 7.5g/dl Albumin 4.5g/dl Globulin 3.00g/dl Albumin/Globulin Ratio 1.50 Lipase 103U/L Current Medications Medications (Trade) Dose Ordered Sig/Johnson Route PRN Reason Start Time Stop Time Status Last Admin Dose Admin Ondansetron HCl 4 mg 4 mg ONCE STAT IV 05/20/17 17:26 05/20/17 17:28 DC 05/20/17 17:43 Sodium Chloride (NS) 1,000 ml @ 1,000 mls/hr Q1H ONCE IV 05/20/17 17:30 05/20/17 18:29 DC 05/20/17 17:43 Potassium Chloride (Klor-Con 20) 40 meq ONCE STAT PO 05/20/17 18:30 05/20/17 18:31 DC 05/20/17 18:41 Procedures/MDM This is a 41-year-old female who presents to the emergency department today complaining of nausea and intermittent vomiting for the past 3 months. Upon review of patient's [facility] report she has been to the emergency department 12 times past year mostly for this same stated complaint and feeling weak because she cannot eat. Patient was requesting that I call her GI specialist Dr. Moshe Rose and speak to him. Patient was also requesting to be admitting to the hospital for "not feeling well". 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 A biopsy was taken to rule out H. pylori. Given patient's complaints and chronic complaints of nausea and vomiting I did repeat laboratory workup. Laboratory workup shows a very mildly elevated white blood cell count at 11. Patient is not anemic. Platelets are within normal limits. Potassium is mildly decreased at 3.3 otherwise electrolytes are within normal limits. Glucose is within normal limits. Liver enzymes are within normal limits. Lipase within normal limits UA is negative for infection test is negative Patient denies any abdominal pain and she has no abdominal pain on physical exam and I do not feel she requires a CT abdomen pelvis She was given 40 mg of oral K-Dur here in the emergency department for mildly decreased potassium. She was also given IV Zofran here in the emergency department. I did explain to the patient that I placed a call to her GI specialist who is currently out of the office. I explained to the patient that she did need a follow-up first thing tomorrow morning and explained that she still was not feeling well on the medication she has been prescribed are not helping her and that she had stopped taking the erythromycin. I explained to the patient that she would not be admitted at this time. At this time there is no clinical indication for admission. Symptoms at this time is consistent with chronic nausea and intermittent vomiting. Low suspicion for acute surgical abdomen, pancreatitis, serious electrolyte abnormality. Patient will be given a prescription for Zofran for home. Patient asked me if she should take her Ativan that she is given and I explained to her that she should take it as prescribed Discussed the patient with Dr. Sosa and he is in agreement with the plan. Departure Diagnosis: Primary Impression: Nausea and vomiting Vomiting type: unspecified Vomiting Intractability: non-intractable Qualified Code: R11.2 - Non-intractable vomiting with nausea, unspecified vomiting type Condition: Fair CHONG TAPIA M. PA-C May 20, 2017 18:10
[2017-05-20] MEDS ORDERED: POTASSIUM CHLORIDE (SR) 20 MEQ TAB PO STA (18:30)
[2017-05-20] MEDS ORDERED: ONDA4TAB8 PO (19:05)
[2017-05-20 19:41] VITALS: BP 134/67; PULSE 75; RESP 18; TEMP 98.2
== END 2017-05-20 19:42 | disposition home or self-care (01) ==
LOC: FTE 16:35
DX: R11.2 Nausea with vomiting, unspecified (principal); I10 Essential (primary) hypertension
CPT/HCPCS: 80053; 81003; 83690; 85025; J2405; J7030; Z7610; 96374

== ENCOUNTER 2017-06-19 07:22 | Day surgery (SDC) | payer BC ==
[~2017-06-19] VITALS: Ht 167.6 cm; Wt 84.7 kg
[~2017-06-19 07:22] MED LIST changes: +ONDA4TAB8 PO
[2017-06-19 07:35] VITALS: Ht 167.6 cm; Wt 84.7 kg
[2017-06-19 07:55] VITALS: BP 131/85; PULSE 89; RESP 23
[2017-06-19] MEDS ORDERED: SUCR1TAB56 PO (08:04)
--- NOTE | 2017-06-19 09:04 | OPPN ---
Date/Time of Note Date/Time of Note DATE: 06/19/17 TIME: 09:03 Proc Note GI Procedure Date 06/19/17 Indication: screening/surveillance, diagnostic Pre-procedure Diagnosis Abdominal pain and constipation Post-procedure Diagnosis Colon polyp removed from the cecum Procedure Performed: Colonoscopy Surgeon see signature line Catheterization Laboratory Technician none Anesthesia Type: moderate sedation Tourniquet Time none EBL none Transfusion required none Biopsy 1: Polyp removed from the cecum Grafts/Implants none Tubes/Drains none Complication(s) none Disposition: PACU Procedure Description Colonoscopy with removal of the entire polyp with jumbo biopsy forceps. Polyp was 5-6 mm in diameter. No tissue was left behind ALEXANDRA DONIS MD Jun 19, 2017 09:04
[2017-06-19] MEDS ORDERED: MIDAZOLAM 1 MG/ML 2 ML INJ ONE ×3 (09:10→09:11)
[2017-06-19] MEDS ORDERED: FENTAnyl 50 MCG/ML VIAL ONE (09:11)
[2017-06-19 09:31] VITALS: BP 120/70; RESP 20
--- NOTE | 2017-06-19 09:50 | GILP ---
DATE OF PROCEDURE: 06/19/2017 PROCEDURE: Colonoscopy with removal of the entire polyp with the cold jumbo biopsy forceps. INDICATION: A 41-year-old female undergoing this procedure for severe constipation and left lower q uadrant pain. Her CAT scan all were negative. The purpose is to evaluate the colon and find out the cause of her symptoms. The risk of the procedure, related and unrelated complications, anes thetic risks, alternatives discussed and informed consent was obtained. DESCRIPTION OF PROCEDURE: Patient was brought to the GI lab, sedated with Versed 5 mg, fentanyl 100 mcg. After optimal sedation, scope was passed with much ease into the rectum. Digital examination was done prior to the insertion of the scope. Sphincter tone was normal. No mass was felt. Scope was passed through the sigmoid, descending, transverse colon all the way into cecum. Appendiceal or ifice identified. There was a polyp about 5-6 mm in diameter identified near the appendiceal orific e, successfully removed in toto by cold jumbo biopsy forceps. No tissue was left behind. While ent ry into terminal ileum, which was normal, the rest of the colon appeared normal. Retroversion done in the rectum, no growth or polyp was seen. Small hemorrhoids identified. Scope was straightened o ut and removed with good patient tolerance. IMPRESSION: 1. Normal finding all the way into cecum except for a small polyp which was successfully removed by cold jumbo biopsy forceps. 2. Normal colon otherwise. 3. Normal terminal ileum. 4. Normal retroversion. 5. Clarity and cleanliness was good. PLAN: Stay on high fiber diet, cut down on red meat and patient needs further workup for her abdomi nal pain. Dictated By: ALEXANDRA JAMES/KEV Conf#: [id number] DID#: [id number] CC: BUDDY KING MD;*EndCC*
== END 2017-06-19 10:59 | disposition home or self-care (01) ==
LOC: GIL 07:22
PROVIDERS: ATTEND Internal Medicine Gastroenterology
DX: D12.6 Benign neoplasm of colon, unspecified (principal); K64.9 Unspecified hemorrhoids; E03.9 Hypothyroidism, unspecified
CPT/HCPCS: 45380; 88305; J2250; J3010; Z7610

== ENCOUNTER 2017-07-25 12:02 | Inpatient (IN) | payer BC ==
[2017-07-24 10:29] VITALS: Ht 160 cm; Wt 87.4 kg
[~2017-07-25] VITALS: Ht 160 cm; Wt 87.4 kg
[2017-07-25] VITALS (25 sets, daily range): BP systolic 104–140; BP diastolic 56–83; PULSE 60–98; RESP 11–19
[~2017-07-25 12:02] MED LIST changes: -CEPH500C PO; -FAMO-96 PO; -FER325 PO; -LIOT50TA2 PO; -METO10TA92 PO; -ONDA4TAB8 PO; -OXYC-279 PO; +SUCR1TAB56 PO
[2017-07-25] MEDS ORDERED: CEFAZOLIN 2 GM/50 ML (PMX) 50 ML IVPB SCH (13:30)
[2017-07-25] MEDS ORDERED: D5-NS + KCL 20 MEQ 1,000 ML IV SCH (13:30)
[2017-07-25] MEDS ORDERED: metroNIDAZOLE 500 MG/NS (PMX) 100 ML IVPB SCH (13:30)
[2017-07-25] MEDS ORDERED: THROMBIN 5000 UNIT VIAL ONE (14:39)
[2017-07-25] MEDS ORDERED: PROPOFOL 20 ML ONE (15:50)
[2017-07-25] MEDS ORDERED: MIDAZOLAM 1 MG/ML 2 ML INJ ONE (15:50)
[2017-07-25] MEDS ORDERED: ROCURONIUM 50 MG INJ ONE ×2 (15:50→17:40)
[2017-07-25] MEDS ORDERED: morphine SULFATE/PF (10 MG/10 ML) INJ ONE (15:50)
[2017-07-25] MEDS ORDERED: LIDOCAINE 2% (SDV) 5 ML INJ ONE (15:50)
[2017-07-25] MEDS ORDERED: SUCCINYLCHOLINE CHLORIDE 100 MG/5 ML SYG IV ONE (15:50)
--- NOTE | 2017-07-25 16:11 | HPN ---
Date/Time of Note Date/Time of Note DATE: 07/25/17 TIME: 16:10 Interval H&P Admission Note Pt. seen H&P reviewed: No system changes ALONDRA MONTALVO MD Jul 25, 2017 16:11
[2017-07-25] MEDS ORDERED: FENTAnyl 50 MCG/ML VIAL ONE (16:24)
[2017-07-25] MEDS ORDERED: DEXAMETHASONE 4 MG/ML 1 ML INJ ONE (17:11)
[2017-07-25] MEDS ORDERED: FAMOTIDINE 20 MG INJ ONE (17:11)
[2017-07-25] MEDS ORDERED: ONDANSETRON 4 MG INJ ONE (17:11)
[2017-07-25] MEDS ORDERED: PROPOFOL 100 ML ONE ×2 (17:14→18:08)
[2017-07-25] MEDS ORDERED: SUGAMMADEX SODIUM 200 MG/2 ML VIAL IV ONE (18:52)
[2017-07-25] MEDS ORDERED: DIPHENHYDRAMINE 50 MG INJ IV PRN ×2 (19:30)
[2017-07-25] MEDS ORDERED: HYDROmorphONE 0.5 MG/0.5 ML SYG IV PRN ×2 (19:30)
[2017-07-25] MEDS ORDERED: NALOXONE (0.4 MG/ML) INJ IV PRN (19:30)
[2017-07-25] MEDS ORDERED: MEPERIDINE 25 MG INJ IV PRN (19:30)
[2017-07-25] MEDS ORDERED: HYDROmorphONE (0.2 MG/ML) 10ML SYG IV PRN (19:30)
[2017-07-25] MEDS ORDERED: PROCHLORPERAZINE 10 MG INJ IV PRN (19:30)
[2017-07-25] MEDS ORDERED: ONDANSETRON 4 MG INJ IV PRN ×2 (19:30)
[2017-07-25] MEDS ORDERED: FENTAnyl 50 MCG/ML VIAL IV PRN (19:30)
[2017-07-25] MEDS ORDERED: HYDROmorphONE (0.2 MG/ML) 10ML SYG IV ONE (19:40)
--- NOTE | 2017-07-25 19:57 | SIPON ---
Date/Time of Note Date/Time of Note DATE: 07/25/17 TIME: 19:55 Operative Report Preoperative Diagnosis pain and adnexal mass Postoperative Diagnosis same and adhsiona Operation/Procedure Performed scope LSO and UD and [id number] Surgeon see signature line home based assistant see dict Anesthesia: other Estimated blood loss: 100 - 150 ml's Transfusion Required none Specimen see dict Grafts/Implants none Complications none ALONDRA MONTALVO MD Jul 25, 2017 19:57
[2017-07-25] MEDS ORDERED: morphine 2 MG INJ IV PRN (20:00)
[2017-07-25] MEDS ORDERED: KETOROLAC 15 MG INJ IV PRN (20:00)
[2017-07-25 20:10] LABS: BASOPHILS % 0.2 % (0.0-2.0); EOSINOPHILS % 0.2 % (0.0-7.0); HEMATOCRIT 39.1 % (37.0-47.0); HEMOGLOBIN 13.6 g/dl (12.0-16.0); LYMPHOCYTES # 1.9 10^3/ul (0.8-2.9); LYMPHOCYTES % 11.5 % (15.0-51.0); MEAN CORPUSCULAR HEMOGLOBIN 30.6 pg (29.0-33.0); MEAN CORPUSCULAR HGB CONC 34.8 g/dl (32.0-37.0); MEAN CORPUSCULAR VOLUME 88.1 fl (82.0-101.0); MEAN PLATELET VOLUME 9.8 fl (7.4-10.4); MONOCYTE # 0.2 10^3/ul (0.3-0.9); MONOCYTES % 1.3 % (0.0-11.0); NEUTROPHIL # 14.4 10^3/ul (1.6-7.5); NEUTROPHILS % 86.1 % (39.0-77.0); PLATELET COUNT 273 10^3/UL (140-415); RED BLOOD COUNT 4.44 10^6/ul (4.20-5.40); RED CELL DISTRIBUTION WIDTH 11.9 % (11.5-14.5); WHITE BLOOD COUNT 16.7 10^3/ul (4.8-10.8)
[2017-07-25 20:27] LABS: HOLD TRANSMISSIONS 1
[2017-07-25 20:28] LABS: CALCIUM 8.5 mg/dl (8.4-10.2); CREATININE 0.56 mg/dl (0.44-1.00); POTASSIUM 3.6 mmol/L (3.5-5.1)
[2017-07-25] MEDS: POTASSIUM CHLORIDE 20 MEQ in LACTATED RINGER'S 1,000 ML IV SCH (22:40)
[2017-07-26] VITALS (7 sets, daily range): BP systolic 100–129; BP diastolic 55–75; PULSE 57–66; RESP 17–20
[2017-07-26] MEDS: POTASSIUM CHLORIDE 20 MEQ in LACTATED RINGER'S 1,000 ML IV SCH ×3 (05:42→21:18)
[2017-07-26 05:50] LABS: BASOPHIL # 0.1 10^3/ul (0.0-0.1); BASOPHILS % 0.4 % (0.0-2.0); EOSINOPHILS % 0.1 % (0.0-7.0); HEMATOCRIT 33.1 % (37.0-47.0); HEMOGLOBIN 11.7 g/dl (12.0-16.0); LYMPHOCYTES # 1.6 10^3/ul (0.8-2.9); LYMPHOCYTES % 11.5 % (15.0-51.0); MEAN CORPUSCULAR HEMOGLOBIN 30.8 pg (29.0-33.0); MEAN CORPUSCULAR HGB CONC 35.3 g/dl (32.0-37.0); MEAN CORPUSCULAR VOLUME 87.1 fl (82.0-101.0); MEAN PLATELET VOLUME 10.3 fl (7.4-10.4); MONOCYTE # 0.8 10^3/ul (0.3-0.9); MONOCYTES % 5.7 % (0.0-11.0); NEUTROPHIL # 11.6 10^3/ul (1.6-7.5); NEUTROPHILS % 81.8 % (39.0-77.0); PLATELET COUNT 264 10^3/UL (140-415); RED CELL DISTRIBUTION WIDTH 12.1 % (11.5-14.5); WHITE BLOOD COUNT 14.2 10^3/ul (4.8-10.8)
[2017-07-26 06:29] LABS: CALCIUM 8.5 mg/dl (8.4-10.2); CREATININE 0.57 mg/dl (0.44-1.00); POTASSIUM 3.7 mmol/L (3.5-5.1)
[2017-07-26] MEDS ORDERED: ACETAMINOPHEN 500 MG TAB PO PRN (17:00)
[2017-07-26] MEDS: SUCRALFATE 1 GM TAB PO SCH ×2 (17:55→21:17)
--- NOTE | 2017-07-26 21:38 | OPR ---
Date/Time of Note Date/Time of Note DATE: 07/26/17 TIME: 21:36 Operative Report Free Text/Dictation OPERATIVE REPORT [facility] Name: Fang Rosas Date: 07/25/17 Preoperative Diagnosis: 1- Pelvic pain 2- Adnexal mass Postoperative Diagnosis: 1- Probable left adnexal mass 2- Dense adhesions and impending small bowel adhesions Procedures: 1- Laparoscopy 2- Lysis of adhesions 3- Unilateral ureteral dissection with repositioning 4- Left salpingoophorectomy 5- Right retroperitoneum scar tissue and deeper exploration Surgeon: Dr. Lantigua [employer] Guid[employer] Counselor: Anesthesia: General Indications for Procedure: The patient is a 41 year old female with a 3-5 cm multi-cystic left adnexal mass and pain with normal markers as appropriate for the patients age with all risks considered and a questionable right adnexal mass with uncertain history. After all options were presented with risks and benefits she agreed to a laparoscopy with a unilateral salpingoophorectomy and possible bilateral and staging if needed. Findings and Summary Name: Fang Rosas After exploration we observed a probable LSO in dense adhesions and a ureteral dissection with repositioning needed. Because the adnexia was adherent to the sidewall it was necessary to dissect and reposition the left ureter. The possible left adnexia was then removed without incident and the right side was dissected and a definite scar tissue was not necessary ovarian. Procedure: After being prepped and draped in the usual manner sponge stick was placed in the vagina for manipulation and identification of anatomy as needed. A 5 millimeter trocar was then inserted cephlad to the umbilicus without incident and the abdomen was insufflated to 15 mm Hg. Subsequently, we then placed two 5 millimeter trocars laterally under direct visualization and a 12 millimeter trocar suprapubically and very dense small bowel were noted in the small bowl and adhesions and required extensive enterolysis throughout the small bowel and ongoing enterolysis was needed. After additional lysis of adhesions at this time any pelvic adhesions were lysed with sharp dissection and a Omni or Gyrus bipolar cutting forceps in the event that no bowel were adjacent. Subsequently we explored and noted sigmoid colon densely adherent to the sidewall with a suggestion of the mass from the LSO and the sigmoid colon. The left adnexae was enlarged to 3 cm and complex, with significant adhesions to the pelvic sidewall precluding mobilization and distorting the ureteral anatomy. Hence, the round ligament was transected with a Gyrus bipolar cutting forceps and the retroperitoneum opened parallel to the possible infundibulo- pelvic (IP) ligament with the Gyrus bipolar cutting forceps and Omni and the opening extended to define anatomy. The ureter was identified, and noted to be densely adherent to the pathology and somewhat distorted, hence requiring a ureteral dissection/repositioning as a separate procedure. The ureter was dissected away and repositioned with great care using the endo-dissector as well as the Gyrus bipolar cutting forceps and Omni bluntly with the Gyrus bipolar cutting Name: Fang Rosas forceps also used for retroperitoneal hemostasis as needed with the ureter visualized and mobilized as appropriate. This process was carried out throughout the ureteral length in the pelvis and it peristalsed normally once repositioned. Subsequently, the probabl IP ligament was desiccated and transected with a Thunderbeat. The probable adnexia with adherent peritoneum was mobilized with a Omni while visualizing the ureter with the Omni used for localized hemostasis as needed with the ureter visualized. Hence the probable ovary and tube were fully by desiccated and transaction of the left triple pedicle with Gyrus bipolar cutting forceps and Thunderbeat. The adnexia had the liquid contents removed and the mass was then removed and was sent to pathology and confirmed to be benign. Subsequently additional additional enterolysis was completed on the right and the retroperitoneum was entered and the vasculature identified and the probable and probable ureter but on the right a definite ovary was not identified. Hence as the pain was on the left and enterolysis was adequate and the probable adnexal mass removed it was not further dissected. After irrigating and assuring hemostasis the 12 millimeter trocar was removed and the fascia was closed with 0-vicryl using an endo-close devise with multiple sutures. The gas was removed and the skin of all sites then closed with 5-0 Monocryl suture. The EBL was 100 ml and the patient tolerated the procedure well and left the OR in good condition. Alonso Lantigua M.D. Procedure Date: Jul 26, 2017 Preoperative Diagnosis as above Postoperative Diagnosis as above Operation/Procedure Performed as above Surgeon see signature line [employer] Guid[employer] Counselor as above Anesthesia Type: other Estimated Blood Loss: 50 - 100 ml's Transfusion none Specimen as above Grafts/Implants none Tubes/Drains as above Complications none Indications as above Procedure Description as above ALONSO LANTIGUA MD Jul 26, 2017 21:38
[2017-07-26] MEDS ORDERED: OXYCODONE/ACETAMINOPHEN (5/325) TAB PO PRN ×2 (22:00)
--- NOTE | 2017-07-26 22:09 | HP ---
DATE OF ADMISSION: 07/25/2017 CHIEF COMPLAINT AND HISTORY OF PRESENT ILLNESS: The patient is a 41-year-old female with history of hypertension, hypothyroidism, status post thyroidectomy, details not available. The patient was se en by Dr. Lantigua as an outpatient for a pelvic mass. Prior to surgery, patient stated that she more d had ultrasound and CT scan of the abdomen done. Reports are not available at this time. The anaya ent was brought to the hospital and underwent laparoscopic left salpingo-oophorectomy, ureteral diss ection and enterolysis. The patient denies any chest pain and shortness of breath. No reported hea dache, dizziness, syncope. No history of fever or chills. Patient does have postoperative discomfo rt. The patient did not have any fever or chills. The patient's blood pressures since admission more ve been less than 129 systolic. The patient is also reporting discomfort due to Hammer catheter. Th ere is no hematuria. No fever or chills. PAST SURGICAL HISTORY: The patient is status post thyroidectomy, details not available, status post laparoscopic cholecystectomy. FAMILY HISTORY: Noncontributory. SOCIAL HISTORY: No smoking, no alcohol. ALLERGIES: PATIENT STATES THAT SHE IS ALLERGIC TO NORCO AND REGLAN, BUT SHE SAYS SHE CAN TAKE PERCO CET. PHYSICAL EXAMINATION: GENERAL: The patient to be conscious, awake, alert. VITAL SIGNS: Temperature 98.7, pulse 75, respirations 20, blood pressure 103/58, O2 saturation 95% on 2 liters nasal cannula. HEENT: Atraumatic, normocephalic. Conjunctivae and lids normal. Oropharynx clear. NECK: Supple. No mass, no thyromegaly. CHEST: Fairly clear. CARDIOVASCULAR: S1, S2 normal. No murmur. ABDOMEN: The patient is status post laparoscopic surgery. EXTREMITIES: No edema. Pedal pulses palpable. SKIN: Without rash. GENITOURINARY: Hammer catheter draining clear urine. NEUROLOGIC: The patient is awake, alert, fairly oriented with no gross focal deficit. LABORATORY DATA: On the day of admission, WBC 16.7, hemoglobin 13.6, platelet 273. Chemistry: Sod ium 138, potassium 3.6, BUN 7, creatinine 8.5, glucose 129. IMPRESSION: 1. Adnexal mass and pelvic pain status post laparoscopic left salpingo-oophorectomy. 2. Hypertension. 3. Hypothyroidism. PLAN: Patient admitted on medical floor. Patient will be started on clear liquid diet and will be continued on IV fluids, and will use SCDs for DVT prophylaxis. We will hold off on Norvasc and meto prolol due to blood pressure being less than 110. We will resume levothyroxine. Plan of care discu ssed with nursing staff. For pain, patient will be continued on Tylenol, Toradol and IV morphine. Dictated By: BROCK PAVON MD AB/NTS Conf#: [id number] DID#: [id number] CC: ALONDRA LANTIGUA MD;*EndCC*
[2017-07-27 00:01] VITALS: BP 107/60; RESP 18
[2017-07-27 04:02] VITALS: BP 109/66; RESP 17
[2017-07-27 05:12] LABS: BASOPHILS % 0.1 % (0.0-2.0); EOSINOPHILS # 0.5 10^3/ul (0.0-0.5); EOSINOPHILS % 4.6 % (0.0-7.0); HEMATOCRIT 33.6 % (37.0-47.0); HEMOGLOBIN 11.7 g/dl (12.0-16.0); LYMPHOCYTES # 2.4 10^3/ul (0.8-2.9); LYMPHOCYTES % 24.4 % (15.0-51.0); MEAN CORPUSCULAR HEMOGLOBIN 30.9 pg (29.0-33.0); MEAN CORPUSCULAR HGB CONC 34.8 g/dl (32.0-37.0); MEAN CORPUSCULAR VOLUME 88.7 fl (82.0-101.0); MONOCYTE # 0.6 10^3/ul (0.3-0.9); MONOCYTES % 6.4 % (0.0-11.0); NEUTROPHIL # 6.4 10^3/ul (1.6-7.5); NEUTROPHILS % 64.2 % (39.0-77.0); PLATELET COUNT 226 10^3/UL (140-415); RED BLOOD COUNT 3.79 10^6/ul (4.20-5.40); RED CELL DISTRIBUTION WIDTH 12.5 % (11.5-14.5); WHITE BLOOD COUNT 9.9 10^3/ul (4.8-10.8)
[2017-07-27 05:47] LABS: CALCIUM 8.2 mg/dl (8.4-10.2); CREATININE 0.7 mg/dl (0.44-1.00); POTASSIUM 3.5 mmol/L (3.5-5.1)
[2017-07-27] MEDS: SUCRALFATE 1 GM TAB PO SCH ×2 (06:43→12:06)
[2017-07-27] MEDS ORDERED: LEVOTHYROXINE 125 MCG TAB PO SCH (07:00)
[2017-07-27 07:58] VITALS: BP 111/71; RESP 18
[2017-07-27 13:56] VITALS: BP 116/66; RESP 18
--- NOTE | 2017-07-27 15:30 | DS ---
Date/Time of Note Date/Time of Note DATE: 07/27/17 TIME: 15:29 Discharge Summary Admission/Discharge Info Admit Date/Time Jul 27, 2017 at 11:17 Discharge Date/Time Patient Condition: Stable Hx of Present Illness The patient is a 41-year-old female with history of hypertension, hypothyroidism , status post thyroidectomy, details not available. The patient was seen by Dr. Lantigua as an outpatient for a pelvic mass. Prior to surgery, patient stated that she had had ultrasound and CT scan of the abdomen done. Reports are not available at this time. The patient was brought to the hospital and underwent laparoscopic left salpingo-oophorectomy, ureteral dissection and enterolysis. The patient denies any chest pain and shortness of breath. No reported headache, dizziness, syncope. No history of fever or chills. Patient does have postoperative discomfort. The patient did not have any fever or chills. The patient's blood pressures since admission have been less than 129 systolic. The patient is also reporting discomfort due to Hammer catheter. There is no hematuria. No fever or chills. Hospital Course - Adnexal mass and pelvic pain status post laparoscopic left salpingo- oophorectomy. - Hypertension. - Hypothyroidism. Home Meds Reported Medications Sucralfate* (Carafate*) 1 Gm Tab, 1 GM PO AC MEALS AND BEDTIME, TAB 06/19/17 Levothyroxine Sodium* (Levothyroxine Sodium*) 125 Mcg Tablet, 125 MCG PO BEFORE BREAKFAST, #30 TAB 12/07/16 Metoprolol Tartrate* (Lopressor*) 25 Mg Tablet, 25 MG PO BID, #60 TAB 12/07/16 Amlodipine Besylate* (Norvasc*) 5 Mg Tablet, 5 MG PO DAILY, TAB 12/07/16 Ergocalciferol (Vitamin D2) (VITAMIN D2) 50,000 Unit Capsule, 39628 UNIT PO Q7D , CAP 12/07/16 Discontinued Scripts Ondansetron Hcl* (Zofran*) 4 Mg Tablet, 4 MG PO Q6H for NAUSEA AND/OR VOMITING, #30 TAB Prov:CHONG TAPIA PA-C 05/20/17 Follow-up Plan Follow-up with Dr. Lantigua in 1 week Primary Care Provider Rosa Isela Avery MD Time spent on discharge: > 30 minutes Pending Labs Laboratory Tests Test 07/27/17 04:44 White Blood Count 9.910^3/ul (4.8-10.8) Red Blood Count 3.7910^6/ul (4.20-5.40) Hemoglobin 11.7g/dl (12.0-16.0) Hematocrit 33.6% (37.0-47.0) Mean Corpuscular Volume 88.7fl (82.0-101.0) Mean Corpuscular Hemoglobin 30.9pg (29.0-33.0) Mean Corpuscular Hemoglobin Concent 34.8g/dl (32.0-37.0) Red Cell Distribution Width 12.5% (11.5-14.5) Platelet Count 62496^3/UL (140-415) Mean Platelet Volume 10.0fl (7.4-10.4) Neutrophils % 64.2% (39.0-77.0) Lymphocytes % 24.4% (15.0-51.0) Monocytes % 6.4% (0.0-11.0) Eosinophils % 4.6% (0.0-7.0) Basophils % 0.1% (0.0-2.0) Nucleated Red Blood Cells % 0.0/100WBC (0.0-0.0) Neutrophils # 6.410^3/ul (1.6-7.5) Lymphocytes # 2.410^3/ul (0.8-2.9) Monocytes # 0.610^3/ul (0.3-0.9) Eosinophils # 0.510^3/ul (0.0-0.5) Basophils # 0.010^3/ul (0.0-0.1) Nucleated Red Blood Cells # 0.010^3/ul (0.0-0.0) Sodium Level 142mmol/L (135-144) Potassium Level 3.5mmol/L (3.5-5.1) Chloride Level 107mmol/L (97-110) Carbon Dioxide Level 29mmol/L (21-31) Anion Gap 10 (8-16) Blood Urea Nitrogen 6mg/dl (7-20) Creatinine 0.70mg/dl (0.44-1.00) Glucose Level 81mg/dl (70-220) Calcium Level 8.2mg/dl (8.4-10.2) EDDIE MALDONADO Jul 27, 2017 15:30
[2017-07-27] MEDS ORDERED: DOCU-144 PO (15:31)
[2017-07-27] MEDS ORDERED: OXYC-438 PO (15:31)
--- NOTE | 2017-07-27 19:27 | PN ---
Date/Time of Note Date/Time of Note DATE: 07/27/17 TIME: 19:25 Assessment/Plan VTE Prophylaxis VTE Prophylaxis Intervention: SCD's Lines/Catheters IV Catheter Type (from Nrsg): Peripheral IV Urinary Cath still in place: No Assessment/Plan Assessment/Plan A- doing well P- probable dischg. Subjective 24 Hr Interval Summary Free Text/Dictation + flatus and OOB well Exam/Review of Systems Vital Signs Vitals Vital Signs Date Time Temp Pulse Resp B/P Pulse Ox O2 Delivery O2 Flow Rate FiO2 07/27/17 13:56 98.0 85 18 116/66 94 07/27/17 04:02 Room Air 07/26/17 05:25 3.0 Intake and Output 07/26/17 07/26/17 07/27/17 15:00 23:00 07:00 Intake Total 300 ml 2200 ml 1000 ml Output Total 1250 ml 1800 ml Balance 300 ml 950 ml -800 ml Exam Resp- clear CVS- NSR Abd- nt Ext- NT Results Result Diagram: 07/27/17 0444 07/27/17 0444 Results 24 hrs Laboratory Tests Test 07/27/17 04:44 White Blood Count 9.9 # Red Blood Count 3.79 L Hemoglobin 11.7 L Hematocrit 33.6 L Mean Corpuscular Volume 88.7 Mean Corpuscular Hemoglobin 30.9 Mean Corpuscular Hemoglobin Concent 34.8 Red Cell Distribution Width 12.5 Platelet Count 226 Mean Platelet Volume 10.0 Neutrophils % 64.2 Lymphocytes % 24.4 Monocytes % 6.4 Eosinophils % 4.6 Basophils % 0.1 Nucleated Red Blood Cells % 0.0 Neutrophils # 6.4 Lymphocytes # 2.4 Monocytes # 0.6 Eosinophils # 0.5 Basophils # 0.0 Nucleated Red Blood Cells # 0.0 Sodium Level 142 Potassium Level 3.5 Chloride Level 107 Carbon Dioxide Level 29 Anion Gap 10 Blood Urea Nitrogen 6 L Creatinine 0.70 Glucose Level 81 Calcium Level 8.2 L ALONDRA MONTALVO MD Jul 27, 2017 19:27
== END 2017-07-27 17:05 | disposition home or self-care (01) | DRG 337 ==
LOC: INTOOBSV 12:02 → REC 12:02 → MS1 20:36 → OBSVTOIN 07-27 11:17
PROVIDERS: ATTEND Internal Medicine
PROC: 0TN74ZZ Release Left Ureter, Percutaneous Endoscopic Approach (ICD-10-PCS; principal; 2017-07-26)
PROC: 0DNW4ZZ Release Peritoneum, Percutaneous Endoscopic Approach (ICD-10-PCS; 2017-07-26)
PROC: 0TS74ZZ Reposition Left Ureter, Percutaneous Endoscopic Approach (ICD-10-PCS; 2017-07-26)
PROC: 0UT64ZZ Resection of Left Fallopian Tube, Percutaneous Endoscopic Approach (ICD-10-PCS; 2017-07-26)
PROC: 0UT14ZZ Resection of Left Ovary, Percutaneous Endoscopic Approach (ICD-10-PCS; 2017-07-26)
DX: K66.0 Peritoneal adhesions (postprocedural) (postinfection) (principal); I10 Essential (primary) hypertension; R10.2 Pelvic and perineal pain; E03.9 Hypothyroidism, unspecified
CPT/HCPCS: 80048; 85025; 86850; 86900; 86901; 86920; 87086; 88305; G0378; J1100; J1170; J1200; J1885; J2250; J2274; J2405; J3010; J3480; J7120